=== PATIENT | female | born 1925 | race Caucasian/White ===

== ENCOUNTER 2016-03-26 02:55 | Inpatient (IN) | payer OTHER, MEDICARE ==
[~2016-03-26] VITALS: Ht 160 cm; Wt 72.6 kg
[~2016-03-26 02:55] MED LIST: ALLOPURINOL100 MG PO; AMBIEN5 MG PO; AMITRIPTYLINE H25 MG PO; AMLODIPINE BESY10 MG; AMLODIPINE BESYL5 MG PO; ASPIR 8181 M1; ASPIRIN81 M1 PO; AVAPRO75 MG PO; CALTRATE 600600 MG PO; CEFUROXIME500 MG PO; CHLORDIAZEPOXID10 MG PO; CLONIDINE HCL0.1 MG; COLCRYS0.6 MG PO; COZAAR50 MG PO; Calcium Carbonate,Ca PO; DUONEB 2.5-0.5 M3 ML AEROSOL; DURAGESIC75 MCG TD; DuoNeb IH; ELAVIL25 MG PO; FISH OIL 1,0001 EAC7 PO; FISH OIL CONC1 EACH PO; FUROSEMIDE20 MG PO; FUROSEMIDE40 MG PO; GLIPIZIDE ER2.5 MG PO; GLIPIZIDE XL10 MG; GLIPIZIDE XL10 MG PO; HYDROCHLOROTHIA25 MG PO; Hydrodiuril,Oretic,E PO; ISOSORBIDE MONO30 MG PO; KENALOG,ARISTOC80 GM; KLOR-CON 88 MEQ PO; LASIX20 MG PO; LEVOTHYROXINE100 MCG PO; LEVOTHYROXINE88 MCG; LIBRIUM10 MG PO; LISINOPRIL40 MG; LISINOPRIL40 MG PO; LO-DOSE ASPIRIN81 M1 PO; LOPRESSOR25 MG; LOPRESSOR25 MG PO; LOPRESSOR50 MG PO; LOSARTAN POTASS50 MG PO; METOPROLOL SUC100 MG PO; METOPROLOL TART50 MG PO; MULTIVITAMIN PO; MULTIVITAMIN1 EAC2; NIFEDIPINE ER30 MG PO; NIFEDIPINE ER60 MG PO; NITROSTAT0.4 MG; NITROSTAT0.4 MG SL; NORVASC10 MG PO; Norvasc PO; OMEGA 3 1,0001 EACH; OSTEO BI-FLEX1 EAC2; PEPCID AC20 MG PO; PRAVACHOL40 MG PO; PRAVASTATIN SOD40 MG PO; PRO AIR IH; PROAIR HFA8.5 GM IH; PROTONIX40 MG PO; PROVENTIL,2.5 MG/3 M IH; Percocet 5/325,Endoc PO; Protonix PO; REFRESH EYE DR1 EACH BOTH EYES; SIMVASTATIN20 MG; SYNTHROID88 MCG PO; TOPROL XL100 MG PO; TRAMADOL HCL50 MG; TYLENOL ARTHRI650 M2; TYLENOL EXTRA500 MG PO; Tirosint PO; Toprol XL PO; Tylenol Arthritis Ex PO; Vitamin D PO; ZOLPIDEM TARTRAT5 MG; Zestril,Prinivil PO; Zocor PO
[2016-03-26 05:23] LABS: INTER. NORMALIZED RATIO 1.1; PROTHROMBIN TIME 11.1 (9.2-11.2); PTT 27.2 (25-32)
[2016-03-26 05:24] LABS: CHLORIDE 106 mEq/L (99-109); POTASSIUM 4.6 mEq/L (3.7-5.4); SODIUM 138 mEq/L (136-147)
[2016-03-26 05:26] LABS: GLUCOSE 113 mg/dL (70-99)
[2016-03-26 05:27] LABS: ANION GAP 11 MEQ/L (2-14)
[2016-03-26 05:30] LABS: GFR ESTIMATE (CALCULATED) 27 mL/min/
[2016-03-26 05:31] LABS: UREA NITROGEN (BUN) 45 mg/dL (9-23)
[2016-03-26 05:33] LABS: HEMATOCRIT 26.9 % (36.0-46.0); MCH 29.3 PG (29.0-34.0); MCHC 32.3 G/DL (30.0-36.0); MCV 90.6 FL (83-99); MEAN PLAT.VOLUME 11.3 uM^3 (9.5-12.4); PLATELET COUNT 227 K/uL (156-360); RBC DIS.WIDTH-CV 14.7 % (11.8-14.6); RED BLOOD COUNT 2.97 M/uL (3.80-5.20); WHITE BLOOD COUNT 12.7 K/uL (4.1-10.2)
[2016-03-26 05:36] LABS: ADD MIUA? YES; BILIRUBIN NEGATIVE; BLOOD LARGE; COLOR YELLOW ((YELLOW)); GLUCOSE (STRIP) NEGATIVE; KETONES NEGATIVE; LEUKOCYTES MODERATE; NITRITE POSITIVE; PROTEIN (STRIP) 100; SPECIFIC GRAVITY 1.006 (1.000-1.030); UROBILINOGEN 0.2 MG/DL (0.2-1.0)
[2016-03-26 06:06] LABS: EPITHELIAL CELLS 1+; RED BLOOD CELLS TNTC /HPF (0-5); WHITE BLOOD CELLS TNTC /HPF (0-5)
[2016-03-26 06:07] LABS: AMORPHOUS URATES CRYSTALS 1+; BACTERIA 3+; CASTS NONE SEEN /LPF; CRYSTALS PRESENT; MUCUS 1+; UCUL ADDED? YES
[2016-03-26 11:28] LABS: POINT-OF-CARE METER ID UU14100415
[2016-03-26] MEDS ORDERED: DUONEB 2.5-0.5 M3 ML AEROSOL (12:38)
[2016-03-26] MEDS ORDERED: ELIQUIS2.5 MG PO (12:38)
[2016-03-26] MEDS ORDERED: TOPROL XL50 MG PO (12:39)
[2016-03-26] MEDS ORDERED: KLOR-CON 88 MEQ PO (12:45)
[2016-03-26] MEDS ORDERED: LASIX40 MG PO (12:46)
[2016-03-26] MEDS ORDERED: COZAAR50 MG PO (12:47)
[2016-03-26] MEDS ORDERED: TYLENOL EXTRA500 MG PO (12:49)
[2016-03-26 16:48] LABS: POINT-OF-CARE METER ID UU14100415; POINT-OF-CARE USER ID STWBNM43
[2016-03-26 18:48] VITALS: BP 161/67
[2016-03-26 20:06] VITALS: BP 145/64
[2016-03-27 00:06] VITALS: BP 138/77
[2016-03-27 03:53] VITALS: BP 160/70
[2016-03-27 05:24] LABS: HEMATOCRIT 25.9 % (36.0-46.0); MCH 29.5 PG (29.0-34.0); MCHC 32.8 G/DL (30.0-36.0); MCV 89.9 FL (83-99); MEAN PLAT.VOLUME 10.9 uM^3 (9.5-12.4); PLATELET COUNT 209 K/uL (156-360); RBC DIS.WIDTH-CV 15.2 % (11.8-14.6); RBC DIS.WIDTH-SD 49.9 % (39-53); RED BLOOD COUNT 2.88 M/uL (3.80-5.20); WHITE BLOOD COUNT 9.2 K/uL (4.1-10.2)
[2016-03-27 05:55] LABS: ANION GAP 10 MEQ/L (2-14); CHLORIDE 102 MEQ/L (99-109); GFR ESTIMATE (CALCULATED) 27 mL/min/; GLUCOSE 103 mg/dL (70-99); POTASSIUM 4.2 MEQ/L (3.7-5.4); SAMPLE HEMOLYSIS CHECK 0; SAMPLE ICTERIC CHECK 0; SAMPLE LIPEMIA CHECK 0; SODIUM 138 MEQ/L (136-147); UREA NITROGEN (BUN) 38 mg/dL (9-23)
[2016-03-27 07:56] VITALS: BP 170/74
[2016-03-27 13:14] LABS: POINT-OF-CARE METER ID UU13113675
[2016-03-27 15:30] VITALS: BP 156/67; BP 164/73
[2016-03-27 16:30] VITALS: BP 164/73
[2016-03-27 16:54] LABS: POINT-OF-CARE METER ID UU13113717
[2016-03-27 20:17] VITALS: BP 161/71
[2016-03-28] VITALS: BP 166/74
[2016-03-28 03:54] VITALS: BP 160/72
[2016-03-28 05:39] LABS: HEMATOCRIT 29.4 % (36.0-46.0); MCV 89.9 FL (83-99)
[2016-03-28 06:01] LABS: ANION GAP 12 MEQ/L (2-14); CHLORIDE 99 MEQ/L (99-109); GFR ESTIMATE (CALCULATED) 27 mL/min/; GLUCOSE 117 mg/dL (70-99); POTASSIUM 4.2 MEQ/L (3.7-5.4); SAMPLE HEMOLYSIS CHECK 0; SAMPLE ICTERIC CHECK 0; SAMPLE LIPEMIA CHECK 0; SODIUM 136 MEQ/L (136-147); UREA NITROGEN (BUN) 37 mg/dL (9-23)
[2016-03-28 07:38] VITALS: BP 170/84
[2016-03-28 11:56] VITALS: BP 169/73
[2016-03-28 12:10] LABS: POINT-OF-CARE METER ID UU13113717
[2016-03-28 16:13] VITALS: BP 137/66
[2016-03-28 16:36] LABS: POINT-OF-CARE METER ID UU14149397
[2016-03-28 23:48] VITALS: BP 116/71
[2016-03-29 03:19] VITALS: BP 145/65
[2016-03-29 05:38] LABS: HEMATOCRIT 29.9 % (36.0-46.0); MCV 90.1 FL (83-99)
[2016-03-29 08:30] VITALS: BP 131/64
[2016-03-29 11:30] VITALS: BP 163/72
[2016-03-29 13:05] LABS: POINT-OF-CARE METER ID UU14149397
[2016-03-29 16:07] LABS: POINT-OF-CARE METER ID UU14149397
[2016-03-29 16:30] VITALS: BP 134/65
[2016-03-29 19:44] VITALS: BP 122/80
[2016-03-29 23:50] VITALS: BP 129/71
[2016-03-30 03:43] VITALS: BP 128/70
[2016-03-30 08:09] VITALS: BP 128/60
[2016-03-30 11:35] LABS: POINT-OF-CARE METER ID UU14149397
[2016-03-30 11:58] VITALS: BP 159/70
[2016-03-30 16:00] VITALS: BP 104/57
[2016-03-30 19:53] VITALS: BP 131/81
[2016-03-31 00:05] VITALS: BP 101/53
[2016-03-31 04:17] VITALS: BP 128/63
[2016-03-31 11:28] VITALS: BP 124/69
[2016-03-31 16:05] VITALS: BP 151/66
[2016-03-31 23:44] VITALS: BP 114/58
[2016-04-01 07:45] VITALS: BP 112/69
[2016-04-01 11:39] LABS: POINT-OF-CARE METER ID UU13113717
== END 2016-04-01 14:20 | DRG 481 ==
LOC: EME 02:55 → TRA 02:55 → EDOF 09:42 → 3EAST 09:42
PROVIDERS: Internal Medicine; Orthopaedic Surgery Hand Surgery; Physician Assistant Medical
PROC: 0QS634Z Reposition Right Upper Femur with Internal Fixation Device, Percutaneous Approach (ICD-10-PCS; principal; 2016-03-27)
PROC: 30233N1 Transfusion of Nonautologous Red Blood Cells into Peripheral Vein, Percutaneous Approach (ICD-10-PCS; 2016-03-27)
DX: S72.001A Fracture of unspecified part of neck of right femur, initial encounter for closed fracture (principal); S42.414A Nondisplaced simple supracondylar fracture without intercondylar fracture of right humerus, initial encounter for closed fracture; W01.0XXA Fall on same level from slipping, tripping and stumbling without subsequent striking against object, initial encounter; Y92.009 Unspecified place in unspecified non-institutional (private) residence as the place of occurrence of the external cause; N39.0 Urinary tract infection, site not specified; I13.0 Hypertensive heart and chronic kidney disease with heart failure and stage 1 through stage 4 chronic kidney disease, or unspecified chronic kidney disease; I50.32 Chronic diastolic (congestive) heart failure; E11.22 Type 2 diabetes mellitus with diabetic chronic kidney disease; N18.3 Chronic kidney disease, stage 3 (moderate); B96.89 Other specified bacterial agents as the cause of diseases classified elsewhere; E03.9 Hypothyroidism, unspecified; E78.5 Hyperlipidemia, unspecified; I48.0 Paroxysmal atrial fibrillation; M10.9 Gout, unspecified; D64.9 Anemia, unspecified; I25.10 Atherosclerotic heart disease of native coronary artery without angina pectoris; E78.00 Pure hypercholesterolemia, unspecified; J45.909 Unspecified asthma, uncomplicated; I35.0 Nonrheumatic aortic (valve) stenosis; K59.00 Constipation, unspecified; Z79.01 Long term (current) use of anticoagulants; Z79.82 Long term (current) use of aspirin; Z99.81 Dependence on supplemental oxygen
CPT/HCPCS: 71010; 73080; 73200; 73502; 76000; 80048; 81003; 82948; 85014; 85018; 85027; 85610; 85730; 86850; 86900; 86901; 86920; 87077; 87086; 87186; 93005; 94010; 94640; 94640 76; 94760; 94799; 97530 GO; 97530 GP; 99202; 99281; 99285; C1713; J0360; J0696; J1170; J1815; J1940; J2060; J2250; J3010; J3360; J7030; J7050; J7120; P9016; S0028

== ENCOUNTER → 2016-04-13 | Outpatient (CLI) | payer OTHER, MEDICARE ==
[2016-04-13] VITALS (8 sets, daily range): BP systolic 166–194; BP diastolic 72–81
[~2016-04-13] MED LIST changes: +B-12500 MC1 SL; +ELIQUIS2.5 MG PO; +LASIX40 MG PO; +TOPROL XL50 MG PO
[2016-04-13 14:29] LABS: HEMATOCRIT 27.9 % (36.0-46.0)
[2016-04-13 14:30] LABS: MCV 91.5 FL (83-99)
== END | disposition home or self-care (01) ==
LOC: IVINF 07:00
PROVIDERS: Family Medicine
DX: D62 Acute posthemorrhagic anemia (principal)
CPT/HCPCS: 36430; 85014; 85018; 86850; 86900; 86901; 86920; 86999; P9016

== ENCOUNTER → 2016-05-06 | Outpatient (CLI) | payer OTHER, MEDICARE ==
[~2016-05-06] VITALS: Ht 152.4 cm; Wt 74.0 kg
[2016-05-06] VITALS (11 sets, daily range): BP systolic 140–188; BP diastolic 64–81
[~2016-05-06] MED LIST changes: +COLCHICINE0.6 M1 PO; +VITAMIN D5000 UNI1 PO
[2016-05-06 19:04] LABS: HEMATOCRIT 30.5 % (36.0-46.0)
[2016-05-06 19:07] LABS: MCV 92.4 FL (83-99)
== END ==
LOC: IVINF 10:30
PROVIDERS: Family Medicine
DX: D64.9 Anemia, unspecified (principal)
CPT/HCPCS: 36415; 36430; 85014; 85018; 86850; 86900; 86901; 86920; 86999; 96375; J1940; P9016

== ENCOUNTER → 2016-05-07 | Outpatient (CLI) | payer OTHER, MEDICARE | LOC: RAD 14:00 | DX: K80.20 Calculus of gallbladder without cholecystitis without obstruction (principal); K57.90 Diverticulosis of intestine, part unspecified, without perforation or abscess without bleeding; D64.9 Anemia, unspecified | CPT/HCPCS: 74176 ==

== ENCOUNTER 2016-08-16 20:30 | Inpatient (IN) | payer OTHER, MEDICARE ==
[~2016-08-16] VITALS: Ht 160 cm; Wt 60.4 kg
[2016-08-16 21:32] LABS: HEMATOCRIT 35.6 % (36.0-46.0); MCH 29.8 PG (29.0-34.0); MCHC 32.6 G/DL (30.0-36.0); MCV 91.5 FL (83-99); MEAN PLAT.VOLUME 11.2 uM^3 (9.5-12.4); PLATELET COUNT 202 K/uL (156-360); RBC DIS.WIDTH-CV 14.6 % (11.8-14.6); RED BLOOD COUNT 3.89 M/uL (3.80-5.20); WHITE BLOOD COUNT 7.8 K/uL (4.1-10.2)
[2016-08-16 21:42] LABS: CHLORIDE 109 mEq/L (99-109); POTASSIUM 4.6 mEq/L (3.7-5.4); SODIUM 142 mEq/L (136-147)
[2016-08-16 21:43] LABS: GLUCOSE 101 mg/dL (70-99)
[2016-08-16 21:45] LABS: ANION GAP 11 MEQ/L (2-14)
[2016-08-16 21:47] LABS: GFR ESTIMATE (CALCULATED) 18 mL/min/
[2016-08-16 21:48] LABS: UREA NITROGEN (BUN) 69 mg/dL (9-23)
[2016-08-16 21:54] LABS: TROP-I INTERPRETATION NEGATIVE; TROPONIN-I 0.03 ng/mL (0.0-0.30)
[2016-08-16 23:39] LABS: ADD MIUA? YES; BILIRUBIN NEGATIVE; BLOOD NEGATIVE; COLOR YELLOW ((YELLOW)); GLUCOSE (STRIP) NEGATIVE; KETONES NEGATIVE; LEUKOCYTES MODERATE; NITRITE NEGATIVE; PROTEIN (STRIP) 100; SPECIFIC GRAVITY 1.013 (1.000-1.030); UROBILINOGEN 0.2 MG/DL (0.2-1.0)
[2016-08-17 00:25] LABS: UCUL ADDED? YES; WHITE BLOOD CELLS TNTC /HPF (0-5)
[2016-08-17] MEDS ORDERED: PROTONIX40 MG PO (00:46)
[2016-08-17] MEDS ORDERED: CELEBREX200 MG PO (00:47)
[2016-08-17 14:06] VITALS: BP 116/57
[2016-08-17 19:18] VITALS: BP 150/68
[2016-08-17 23:25] VITALS: BP 144/63
[2016-08-18 03:45] VITALS: BP 138/60
[2016-08-18 06:48] VITALS: BP 174/74
[2016-08-18 07:17] LABS: HEMATOCRIT 33.5 % (36.0-46.0); MCH 29.6 PG (29.0-34.0); MCHC 31.9 G/DL (30.0-36.0); MCV 92.5 FL (83-99); MEAN PLAT.VOLUME 11.4 uM^3 (9.5-12.4); PLATELET COUNT 176 K/uL (156-360); RBC DIS.WIDTH-CV 14.6 % (11.8-14.6); RBC DIS.WIDTH-SD 50.1 % (39-53); RED BLOOD COUNT 3.62 M/uL (3.80-5.20); WHITE BLOOD COUNT 7.3 K/uL (4.1-10.2)
[2016-08-18 07:39] LABS: ANION GAP 9 MEQ/L (2-14); CHLORIDE 110 MEQ/L (99-109); GFR ESTIMATE (CALCULATED) 24 mL/min/; GLUCOSE 98 mg/dL (70-99); POTASSIUM 4.3 MEQ/L (3.7-5.4); SAMPLE HEMOLYSIS CHECK 0; SAMPLE ICTERIC CHECK 0; SAMPLE LIPEMIA CHECK 0; SODIUM 141 MEQ/L (136-147); UREA NITROGEN (BUN) 59 mg/dL (9-23); URIC ACID 8.6 mg/dL (3.1-9.2)
[2016-08-18 12:00] VITALS: BP 133/60
[2016-08-18 15:30] VITALS: BP 192/86
[2016-08-18 19:33] VITALS: BP 127/60
[2016-08-18 23:58] VITALS: BP 133/64
[2016-08-19 03:49] VITALS: BP 140/72
[2016-08-19 07:17] VITALS: BP 188/79
[2016-08-19 07:42] LABS: HEMATOCRIT 35.9 % (36.0-46.0); MCH 29.8 PG (29.0-34.0); MEAN PLAT.VOLUME 11.6 uM^3 (9.5-12.4); PLATELET COUNT 186 K/uL (156-360); RBC DIS.WIDTH-CV 14.6 % (11.8-14.6); RED BLOOD COUNT 3.86 M/uL (3.80-5.20); WHITE BLOOD COUNT 8.4 K/uL (4.1-10.2)
[2016-08-19 08:05] LABS: ALKALINE PHOSPHATASE 65 IU/L (3-129); ANION GAP 8 MEQ/L (2-14); CHLORIDE 108 MEQ/L (99-109); GFR ESTIMATE (CALCULATED) 26 mL/min/; GLUCOSE 99 mg/dL (70-99); POTASSIUM 4.5 MEQ/L (3.7-5.4); SAMPLE HEMOLYSIS CHECK 0; SAMPLE ICTERIC CHECK 0; SAMPLE LIPEMIA CHECK 0; SODIUM 140 MEQ/L (136-147); TOTAL BILIRUBIN 0.3 MG/DL (0.0-1.0); UREA NITROGEN (BUN) 44 mg/dL (9-23)
[2016-08-19 11:20] VITALS: BP 147/65
[2016-08-19 15:17] VITALS: BP 168/72
[2016-08-19 20:59] VITALS: BP 165/72
[2016-08-20 00:22] VITALS: BP 172/74
[2016-08-20 03:28] VITALS: BP 151/67
[2016-08-20 07:45] VITALS: BP 184/74
[2016-08-20 12:29] VITALS: BP 186/80
[2016-08-20] MEDS ORDERED: APRESOLINE25 MG PO (12:35)
[2016-08-20] MEDS ORDERED: NIFEDIPINE ER30 MG PO (12:36)
[2016-08-20] MEDS ORDERED: CEFDINIR300 MG PO (12:40)
[2016-08-20 15:37] VITALS: BP 175/74
[2016-08-20 15:45] VITALS: BP 150/68
== END 2016-08-20 16:20 | DRG 683 ==
LOC: EME → EDBD 20:30 → EME 20:30 → 2EASTP 08-17 00:08 → EDOF 08-17 00:08 → 2EASTP 08-17 13:47
PROVIDERS: Emergency Medicine; Hospitalist; Internal Medicine
DX: N17.9 Acute kidney failure, unspecified (principal); N39.0 Urinary tract infection, site not specified; E03.9 Hypothyroidism, unspecified; E78.5 Hyperlipidemia, unspecified; F41.9 Anxiety disorder, unspecified; I35.0 Nonrheumatic aortic (valve) stenosis; I44.0 Atrioventricular block, first degree; I48.0 Paroxysmal atrial fibrillation; I50.9 Heart failure, unspecified; J45.909 Unspecified asthma, uncomplicated; K21.9 Gastro-esophageal reflux disease without esophagitis; M19.90 Unspecified osteoarthritis, unspecified site; N18.3 Chronic kidney disease, stage 3 (moderate); R29.6 Repeated falls; R32 Unspecified urinary incontinence; Z96.641 Presence of right artificial hip joint; E11.22 Type 2 diabetes mellitus with diabetic chronic kidney disease; I13.0 Hypertensive heart and chronic kidney disease with heart failure and stage 1 through stage 4 chronic kidney disease, or unspecified chronic kidney disease; M54.30 Sciatica, unspecified side; T39.395A Adverse effect of other nonsteroidal anti-inflammatory drugs [NSAID], initial encounter; M48.54XA Collapsed vertebra, not elsewhere classified, thoracic region, initial encounter for fracture; M51.36 Other intervertebral disc degeneration, lumbar region; Z91.81 History of falling
CPT/HCPCS: 71010; 72100; 73502; 76770; 80048; 80053; 81003; 84484; 84550; 85027; 87077; 87086; 87186; 89190; 93005; 94799; 99281; 99285; J0360; J0696; J1644; J7030; J7050

== ENCOUNTER 2016-10-16 16:30 | Inpatient (IN) | payer OTHER, MEDICARE ==
[~2016-10-16] VITALS: Ht 152.4 cm; Wt 80.4 kg
[~2016-10-16 16:30] MED LIST changes: +APRESOLINE25 MG PO; +B-121000 MC2 PO; -B-12500 MC1 SL; +CEFDINIR300 MG PO; +CELEBREX200 MG PO
[2016-10-16 17:09] LABS: HEMATOCRIT 28.2 % (36.0-46.0); MCH 29.9 PG (29.0-34.0); MCHC 32.6 G/DL (30.0-36.0); MCV 91.6 FL (83-99); MEAN PLAT.VOLUME 10.4 uM^3 (9.5-12.4); PLATELET COUNT 226 K/uL (156-360); RBC DIS.WIDTH-SD 50.4 % (39-53); RED BLOOD COUNT 3.08 M/uL (3.80-5.20); WHITE BLOOD COUNT 9.2 K/uL (4.1-10.2)
[2016-10-16 17:18] LABS: CHLORIDE 101 mEq/L (99-109); POTASSIUM 3.8 mEq/L (3.7-5.4); SODIUM 139 mEq/L (136-147)
[2016-10-16 17:20] LABS: GLUCOSE 163 mg/dL (70-99)
[2016-10-16 17:21] LABS: ANION GAP 13 MEQ/L (2-14)
[2016-10-16 17:24] LABS: GFR ESTIMATE (CALCULATED) 22 mL/min/; UREA NITROGEN (BUN) 46 mg/dL (9-23)
[2016-10-16] MEDS ORDERED: FLEXERIL5 MG PO (22:46)
[2016-10-16] MEDS ORDERED: NIFEDIPINE ER90 MG PO (22:47)
[2016-10-16] MEDS ORDERED: OMEPRAZOLE20 MG PO (22:47)
[2016-10-16] MEDS ORDERED: TRAMADOL HCL50 MG PO (22:47)
[2016-10-16] MEDS ORDERED: FUROSEMIDE20 MG PO (22:47)
[2016-10-16] MEDS ORDERED: APRESOLINE50 MG PO (22:48)
[2016-10-16] MEDS ORDERED: IMDUR60 MG PO (22:49)
[2016-10-16] MEDS ORDERED: ALLOPURINOL100 MG PO (22:49)
[2016-10-17] VITALS (7 sets, daily range): BP systolic 130–184; BP diastolic 61–77
[2016-10-17 08:05] LABS: HEMATOCRIT 25.6 % (36.0-46.0); MCH 29.9 PG (29.0-34.0); MCV 93.4 FL (83-99); MEAN PLAT.VOLUME 10.5 uM^3 (9.5-12.4); PLATELET COUNT 198 K/uL (156-360); RBC DIS.WIDTH-CV 15.1 % (11.8-14.6); RBC DIS.WIDTH-SD 51.6 % (39-53); RED BLOOD COUNT 2.74 M/uL (3.80-5.20); WHITE BLOOD COUNT 8.7 K/uL (4.1-10.2)
[2016-10-17 08:29] LABS: ANION GAP 7 MEQ/L (2-14); CHLORIDE 103 MEQ/L (99-109); GFR ESTIMATE (CALCULATED) 28 mL/min/; POTASSIUM 3.8 MEQ/L (3.7-5.4); SAMPLE HEMOLYSIS CHECK 0; SAMPLE ICTERIC CHECK 0; SAMPLE LIPEMIA CHECK 0; SODIUM 141 MEQ/L (136-147); UREA NITROGEN (BUN) 36 mg/dL (9-23)
[2016-10-17 08:34] LABS: ALKALINE PHOSPHATASE 197 IU/L (3-129); GLUCOSE 86 mg/dL (70-99); TOTAL BILIRUBIN 0.6 MG/DL (0.0-1.0)
[2016-10-18 07:48] VITALS: BP 158/69
[2016-10-18 08:16] LABS: ANION GAP 9 MEQ/L (2-14); CHLORIDE 103 MEQ/L (99-109); GFR ESTIMATE (CALCULATED) 30 mL/min/; GLUCOSE 90 mg/dL (70-99); POTASSIUM 3.9 MEQ/L (3.7-5.4); SAMPLE HEMOLYSIS CHECK 0; SAMPLE ICTERIC CHECK 0; SAMPLE LIPEMIA CHECK 0; SODIUM 139 MEQ/L (136-147); UREA NITROGEN (BUN) 30 mg/dL (9-23)
[2016-10-18 15:48] VITALS: BP 154/69
[2016-10-18 23:00] VITALS: BP 143/73
[2016-10-18 23:45] VITALS: BP 143/73
[2016-10-19 03:40] VITALS: BP 133/60
[2016-10-19 06:39] LABS: TROP-I INTERPRETATION NEGATIVE; TROPONIN-I 0.04 ng/mL (0.0-0.30)
[2016-10-19 08:09] VITALS: BP 159/94
[2016-10-19 08:55] LABS: EOSINOPHIL (%) 0.6 % (0-5); EOSINOPHIL COUNT 0.1 K/uL (0-0.3); HEMATOCRIT 27.7 % (36.0-46.0); IMMATURE GRANULOCYTE (%) 0.9 % (0.0-0.7); IMMATURE GRANULOCYTE COUNT 0.1 K/uL; LYMPHOCYTE COUNT 0.5 K/uL (1.0-2.8); MCH 30.6 PG (29.0-34.0); MCHC 33.2 G/DL (30.0-36.0); MEAN PLAT.VOLUME 11.3 uM^3 (9.5-12.4); MONOCYTE (%) 6.9 % (3-12); MONOCYTE COUNT 0.8 K/uL (0-0.8); NEUTROPHIL (%) 87.4 % (45-76); PLATELET COUNT 192 K/uL (156-360); RBC DIS.WIDTH-CV 16.5 % (11.8-14.6); RBC DIS.WIDTH-SD 55.6 % (39-53); RED BLOOD COUNT 3.01 M/uL (3.80-5.20); WHITE BLOOD COUNT 11.5 K/uL (4.1-10.2)
[2016-10-19 09:19] LABS: ALKALINE PHOSPHATASE 189 IU/L (3-129); ANION GAP 12 MEQ/L (2-14); CHLORIDE 105 MEQ/L (99-109); GFR ESTIMATE (CALCULATED) 25 mL/min/; GLUCOSE 131 mg/dL (70-99); POTASSIUM 4.1 MEQ/L (3.7-5.4); SAMPLE HEMOLYSIS CHECK 0; SAMPLE ICTERIC CHECK 0; SAMPLE LIPEMIA CHECK 0; SODIUM 138 MEQ/L (136-147); UREA NITROGEN (BUN) 31 mg/dL (9-23)
[2016-10-19 09:20] LABS: TOTAL BILIRUBIN 1.3 MG/DL (0.0-1.0)
[2016-10-19 11:50] VITALS: BP 153/70
[2016-10-19 16:30] VITALS: BP 119/59
[2016-10-19 19:42] VITALS: BP 129/60
[2016-10-19 23:20] VITALS: BP 135/70
[2016-10-19 23:43] LABS: POINT-OF-CARE METER ID UU14188577
[2016-10-20 06:36] LABS: POINT-OF-CARE METER ID UU14188577
[2016-10-20 06:55] LABS: HEMATOCRIT 24.7 % (36.0-46.0); MCH 30.3 PG (29.0-34.0); MCHC 33.2 G/DL (30.0-36.0); MCV 91.1 FL (83-99); MEAN PLAT.VOLUME 10.9 uM^3 (9.5-12.4); PLATELET COUNT 168 K/uL (156-360); RBC DIS.WIDTH-CV 16.4 % (11.8-14.6); RBC DIS.WIDTH-SD 54.4 % (39-53); RED BLOOD COUNT 2.71 M/uL (3.80-5.20); WHITE BLOOD COUNT 8.6 K/uL (4.1-10.2)
[2016-10-20 07:23] LABS: ALKALINE PHOSPHATASE 179 IU/L (3-129); ANION GAP 9 MEQ/L (2-14); CHLORIDE 105 MEQ/L (99-109); GFR ESTIMATE (CALCULATED) 26 mL/min/; GLUCOSE 113 mg/dL (70-99); POTASSIUM 3.7 MEQ/L (3.7-5.4); SAMPLE HEMOLYSIS CHECK 0; SAMPLE ICTERIC CHECK 0; SAMPLE LIPEMIA CHECK 0; SODIUM 138 MEQ/L (136-147); TOTAL BILIRUBIN 1.3 MG/DL (0.0-1.0); UREA NITROGEN (BUN) 27 mg/dL (9-23)
[2016-10-20 07:46] VITALS: BP 129/62
[2016-10-20 15:17] VITALS: BP 130/61
[2016-10-20 16:10] LABS: POINT-OF-CARE METER ID UU14188577
[2016-10-20 21:02] LABS: POINT-OF-CARE METER ID UU14188577
[2016-10-21 00:09] VITALS: BP 132/68
[2016-10-21 06:40] LABS: POINT-OF-CARE METER ID UU14117124
[2016-10-21 08:11] VITALS: BP 147/67
[2016-10-21 11:25] LABS: POINT-OF-CARE METER ID UU14208753
== END 2016-10-21 14:52 | DRG 470 ==
LOC: EME 16:30 → EDOF 23:04 → 3EAST 23:04 → ENRESERV 23:05 → 3EAST 10-17 01:00
PROVIDERS: Internal Medicine; Internal Medicine Cardiovascular Disease; Physician Assistant Medical
PROC: 0SR902A Replacement of Right Hip Joint with Metal on Polyethylene Synthetic Substitute, Uncemented, Open Approach (ICD-10-PCS; principal; 2016-10-16)
PROC: 30233N1 Transfusion of Nonautologous Red Blood Cells into Peripheral Vein, Percutaneous Approach (ICD-10-PCS; 2016-10-19)
DX: T84.114A Breakdown (mechanical) of internal fixation device of right femur, initial encounter (principal); S72.91XK Unspecified fracture of right femur, subsequent encounter for closed fracture with nonunion; K21.9 Gastro-esophageal reflux disease without esophagitis; I48.0 Paroxysmal atrial fibrillation; I50.32 Chronic diastolic (congestive) heart failure; I27.2 Other secondary pulmonary hypertension; I08.1 Rheumatic disorders of both mitral and tricuspid valves; N18.4 Chronic kidney disease, stage 4 (severe); E11.40 Type 2 diabetes mellitus with diabetic neuropathy, unspecified; E11.22 Type 2 diabetes mellitus with diabetic chronic kidney disease; I13.0 Hypertensive heart and chronic kidney disease with heart failure and stage 1 through stage 4 chronic kidney disease, or unspecified chronic kidney disease; R26.89 Other abnormalities of gait and mobility; D64.9 Anemia, unspecified; E03.9 Hypothyroidism, unspecified; R09.89 Other specified symptoms and signs involving the circulatory and respiratory systems; I25.10 Atherosclerotic heart disease of native coronary artery without angina pectoris; M54.9 Dorsalgia, unspecified; G89.29 Other chronic pain; H91.90 Unspecified hearing loss, unspecified ear; E78.5 Hyperlipidemia, unspecified; K59.00 Constipation, unspecified; R60.0 Localized edema; R32 Unspecified urinary incontinence; B96.20 Unspecified Escherichia coli [E. coli] as the cause of diseases classified elsewhere; I08.3 Combined rheumatic disorders of mitral, aortic and tricuspid valves; Z66 Do not resuscitate; S52.271A Monteggia's fracture of right ulna, initial encounter for closed fracture; Z96.641 Presence of right artificial hip joint; M19.90 Unspecified osteoarthritis, unspecified site; M10.9 Gout, unspecified; J84.10 Pulmonary fibrosis, unspecified; Z88.6 Allergy status to analgesic agent; Z88.1 Allergy status to other antibiotic agents; Z79.899 Other long term (current) drug therapy; Z88.8 Allergy status to other drugs, medicaments and biological substances; Z86.718 Personal history of other venous thrombosis and embolism; Z99.81 Dependence on supplemental oxygen; Z91.041 Radiographic dye allergy status; I35.0 Nonrheumatic aortic (valve) stenosis; R07.9 Chest pain, unspecified; M79.606 Pain in leg, unspecified; Z90.6 Acquired absence of other parts of urinary tract; M81.0 Age-related osteoporosis without current pathological fracture
CPT/HCPCS: 36415; 72100; 73502; 73700; 80048; 80053; 81003; 82948; 83036; 84443; 84484; 85025; 85027; 86900; 86901; 86920; 87070; 87075; 87077; 87086; 87186; 87205; 93005; 94799; 99281; 99285; J0131; J0330; J0690; J1170; J1335; J1644; J2270; J2405; J3010; J3480; J7030; J7050; P9016

== ENCOUNTER 2016-11-16 18:39 | Inpatient (IN) | payer OTHER, MEDICARE ==
[~2016-11-16] VITALS: Ht 160 cm; Wt 75.2 kg
[~2016-11-16 18:39] MED LIST changes: +APRESOLINE50 MG PO; +FLEXERIL5 MG PO; +IMDUR60 MG PO; +NIFEDIPINE ER90 MG PO; +OMEPRAZOLE20 MG PO; +TRAMADOL HCL50 MG PO
[2016-11-16 20:03] LABS: EOSINOPHIL (%) 1.8 % (0-5); EOSINOPHIL COUNT 0.3 K/uL (0-0.3); HEMATOCRIT 28.8 % (36.0-46.0); IMMATURE GRANULOCYTE (%) 1.1 % (0.0-0.7); IMMATURE GRANULOCYTE COUNT 0.2 K/uL; INSTRUMENT ABS NEUTROPHIL CT 14.6 K/uL; LYMPHOCYTE COUNT 0.2 K/uL (1.0-2.8); MCH 30.4 PG (29.0-34.0); MCHC 31.9 G/DL (30.0-36.0); MONOCYTE (%) 3.5 % (3-12); MONOCYTE COUNT 0.6 K/uL (0-0.8); NEUTROPHIL (%) 92.5 % (45-76); NEUTROPHIL COUNT 14.6 K/uL (1.8-6.4); PLATELET COUNT 292 K/uL (156-360); RBC DIS.WIDTH-CV 17.1 % (11.8-14.6); RBC DIS.WIDTH-SD 59.8 % (39-53); RED BLOOD COUNT 3.03 M/uL (3.80-5.20); WHITE BLOOD COUNT 15.7 K/uL (4.1-10.2)
[2016-11-16 20:21] LABS: CHLORIDE 108 mEq/L (99-109); POTASSIUM 4.8 mEq/L (3.7-5.4); SODIUM 143 mEq/L (136-147)
[2016-11-16 20:23] LABS: GLUCOSE 81 mg/dL (70-99)
[2016-11-16 20:24] LABS: ANION GAP 14 MEQ/L (2-14)
[2016-11-16 20:26] LABS: GFR ESTIMATE (CALCULATED) 26 mL/min/
[2016-11-16 20:27] LABS: UREA NITROGEN (BUN) 25 mg/dL (9-23)
[2016-11-16 20:31] LABS: TROP-I INTERPRETATION NEGATIVE; TROPONIN-I 0.01 ng/mL (0.0-0.30)
[2016-11-16 20:38] LABS: ADD MIUA? YES; BILIRUBIN NEGATIVE; BLOOD NEGATIVE; COLOR YELLOW ((YELLOW)); GLUCOSE (STRIP) 50; KETONES NEGATIVE; LEUKOCYTES NEGATIVE; NITRITE NEGATIVE; PROTEIN (STRIP) >=500; SPECIFIC GRAVITY 1.014 (1.000-1.030); UROBILINOGEN 0.2 MG/DL (0.2-1.0)
[2016-11-16 20:43] LABS: BACTERIA RARE /HPF; EPITHELIAL CELLS RARE /HPF; MUCUS TRACE /LPF; RED BLOOD CELLS 0-5 /HPF (0-5); UCUL ADDED? YES
[2016-11-17] VITALS (8 sets, daily range): BP systolic 112–151; BP diastolic 55–78
[2016-11-17 04:02] LABS: EOSINOPHIL (%) 0.2 % (0-5); HEMATOCRIT 21.7 % (36.0-46.0); IMMATURE GRANULOCYTE (%) 0.8 % (0.0-0.7); IMMATURE GRANULOCYTE COUNT 0.2 K/uL; INSTRUMENT ABS NEUTROPHIL CT 18.4 K/uL; LYMPHOCYTE COUNT 0.1 K/uL (1.0-2.8); MCH 30.3 PG (29.0-34.0); MCHC 32.3 G/DL (30.0-36.0); MCV 93.9 FL (83-99); MEAN PLAT.VOLUME 10.6 uM^3 (9.5-12.4); MONOCYTE (%) 2.4 % (3-12); MONOCYTE COUNT 0.5 K/uL (0-0.8); NEUTROPHIL (%) 95.9 % (45-76); NEUTROPHIL COUNT 18.4 K/uL (1.8-6.4); PLATELET COUNT 250 K/uL (156-360); RBC DIS.WIDTH-SD 58.1 % (39-53); RED BLOOD COUNT 2.31 M/uL (3.80-5.20); WHITE BLOOD COUNT 19.2 K/uL (4.1-10.2)
[2016-11-17 04:03] LABS: CHLORIDE 108 mEq/L (99-109); POTASSIUM 4.5 mEq/L (3.7-5.4); SODIUM 139 mEq/L (136-147)
[2016-11-17 04:06] LABS: ANION GAP 11 MEQ/L (2-14)
[2016-11-17 04:08] LABS: GFR ESTIMATE (CALCULATED) 30 mL/min/
[2016-11-17 04:09] LABS: UREA NITROGEN (BUN) 25 mg/dL (9-23)
[2016-11-17 04:10] LABS: GLUCOSE 129 mg/dL (70-99)
[2016-11-17 04:55] LABS: INFLUENZA A VIRAL ANTIGEN NEGATIVE; INFLUENZA B VIRAL ANTIGEN NEGATIVE
[2016-11-17] MEDS ORDERED: METOPROLOL SUCC25 MG PO (08:31)
[2016-11-17] MEDS ORDERED: VITRON-C TABLE1 EACH PO (08:36)
[2016-11-17] MEDS ORDERED: ASPIR-LOW81 MG PO (08:37)
[2016-11-17] MEDS ORDERED: FERROUS SULFAT325 MG PO (08:38)
[2016-11-17] MEDS ORDERED: TYLENOL EXTRA500 MG PO (08:40)
[2016-11-17] MEDS ORDERED: NITROFURANTOIN50 MG PO (08:43)
[2016-11-17] MEDS ORDERED: DULCOLAX10 MG PR (08:44)
[2016-11-17] MEDS ORDERED: MIRALAX17 GM PO (08:45)
[2016-11-17] MEDS ORDERED: MILK OF MAGN PO (08:45)
[2016-11-17] MEDS ORDERED: ROXICODONE5 MG PO (08:46)
[2016-11-17 08:50] LABS: INTERNAL CONTROL VALID? YES
[2016-11-17 18:09] LABS: METH RESISTANT S AUREUS PCR NEGATIVE (NEGATIVE)
[2016-11-17 18:11] LABS: PROBE CHECK PASS; SPECIMEN PROCESSING CONTROL PASS
[2016-11-17 19:42] LABS: EOSINOPHIL (%) 1.6 % (0-5); EOSINOPHIL COUNT 0.2 K/uL (0-0.3); HEMATOCRIT 24.5 % (36.0-46.0); IMMATURE GRANULOCYTE (%) 0.6 % (0.0-0.7); IMMATURE GRANULOCYTE COUNT 0.1 K/uL; INSTRUMENT ABS NEUTROPHIL CT 10.7 K/uL; LYMPHOCYTE COUNT 0.4 K/uL (1.0-2.8); MCH 31.1 PG (29.0-34.0); MCHC 33.5 G/DL (30.0-36.0); MCV 92.8 FL (83-99); MEAN PLAT.VOLUME 10.6 uM^3 (9.5-12.4); MONOCYTE (%) 3.7 % (3-12); MONOCYTE COUNT 0.4 K/uL (0-0.8); NEUTROPHIL (%) 90.8 % (45-76); NEUTROPHIL COUNT 10.7 K/uL (1.8-6.4); PLATELET COUNT 196 K/uL (156-360); RBC DIS.WIDTH-CV 17.5 % (11.8-14.6); RBC DIS.WIDTH-SD 58.5 % (39-53); RED BLOOD COUNT 2.64 M/uL (3.80-5.20); WHITE BLOOD COUNT 11.8 K/uL (4.1-10.2)
[2016-11-17 23:24] LABS: BASE EXCESS -1.7 mEq/L (-3 to +3); CARBOXY HGB 1.5 % (0-5); METHEMOGLOBIN 1.4 % (0-1.5); PCO2 38 mm Hg (35-45); PO2 85 mm Hg (80-100); pH 7.39 (7.35-7.45)
[2016-11-17 23:25] LABS: COMMENTS - BLOOD GASES C+A+; DEVICE HFNC; O2 FLOW 15 L/MIN; SITE RR
[2016-11-18 07:05] LABS: EOSINOPHIL (%) 1.4 % (0-5); EOSINOPHIL COUNT 0.2 K/uL (0-0.3); HEMATOCRIT 25.4 % (36.0-46.0); IMMATURE GRANULOCYTE COUNT 0.1 K/uL; INSTRUMENT ABS NEUTROPHIL CT 9.4 K/uL; LYMPHOCYTE COUNT 0.4 K/uL (1.0-2.8); MCH 29.9 PG (29.0-34.0); MCHC 31.9 G/DL (30.0-36.0); MCV 93.7 FL (83-99); MEAN PLAT.VOLUME 10.9 uM^3 (9.5-12.4); MONOCYTE (%) 4.5 % (3-12); MONOCYTE COUNT 0.5 K/uL (0-0.8); NEUTROPHIL (%) 88.8 % (45-76); NEUTROPHIL COUNT 9.4 K/uL (1.8-6.4); PLATELET COUNT 204 K/uL (156-360); RBC DIS.WIDTH-CV 17.8 % (11.8-14.6); RBC DIS.WIDTH-SD 61.2 % (39-53); RED BLOOD COUNT 2.71 M/uL (3.80-5.20); WHITE BLOOD COUNT 10.6 K/uL (4.1-10.2)
[2016-11-18 07:31] LABS: ANION GAP 12 MEQ/L (2-14); CHLORIDE 102 MEQ/L (99-109); POTASSIUM 4.2 MEQ/L (3.7-5.4); SAMPLE HEMOLYSIS CHECK 0; SAMPLE ICTERIC CHECK 0; SAMPLE LIPEMIA CHECK 0; SODIUM 135 MEQ/L (136-147)
[2016-11-18 07:37] LABS: GFR ESTIMATE (CALCULATED) 28 mL/min/; UREA NITROGEN (BUN) 31 mg/dL (9-23)
[2016-11-18 07:38] LABS: GLUCOSE 85 mg/dL (70-99)
[2016-11-18 08:22] VITALS: BP 145/65
[2016-11-18 11:35] VITALS: BP 141/63
[2016-11-18 16:02] VITALS: BP 117/88
[2016-11-18 23:41] VITALS: BP 139/63
[2016-11-19 06:27] LABS: HEMATOCRIT 24.5 % (36.0-46.0); MCH 29.3 PG (29.0-34.0); MCHC 31.8 G/DL (30.0-36.0); MCV 92.1 FL (83-99); MEAN PLAT.VOLUME 10.8 uM^3 (9.5-12.4); PLATELET COUNT 227 K/uL (156-360); RBC DIS.WIDTH-CV 17.2 % (11.8-14.6); RBC DIS.WIDTH-SD 57.6 % (39-53); RED BLOOD COUNT 2.66 M/uL (3.80-5.20); WHITE BLOOD COUNT 9.2 K/uL (4.1-10.2)
[2016-11-19 06:47] LABS: ANION GAP 11 MEQ/L (2-14); CHLORIDE 100 MEQ/L (99-109); GFR ESTIMATE (CALCULATED) 25 mL/min/; GLUCOSE 90 mg/dL (70-99); POTASSIUM 3.6 MEQ/L (3.7-5.4); SAMPLE HEMOLYSIS CHECK 0; SAMPLE ICTERIC CHECK 0; SAMPLE LIPEMIA CHECK 0; SODIUM 134 MEQ/L (136-147); UREA NITROGEN (BUN) 33 mg/dL (9-23); VANCOMYCIN, TROUGH 17.4 MCG/ML (10-20)
[2016-11-19 07:49] VITALS: BP 135/90
[2016-11-19 15:55] VITALS: BP 145/65
[2016-11-19 23:45] VITALS: BP 127/65
[2016-11-20 07:08] LABS: HEMATOCRIT 23.5 % (36.0-46.0); MCH 30.7 PG (29.0-34.0); MCHC 33.2 G/DL (30.0-36.0); MCV 92.5 FL (83-99); MEAN PLAT.VOLUME 10.7 uM^3 (9.5-12.4); PLATELET COUNT 196 K/uL (156-360); RBC DIS.WIDTH-CV 16.5 % (11.8-14.6); RBC DIS.WIDTH-SD 56.1 % (39-53); RED BLOOD COUNT 2.54 M/uL (3.80-5.20); WHITE BLOOD COUNT 4.7 K/uL (4.1-10.2)
[2016-11-20 07:37] LABS: ANION GAP 11 MEQ/L (2-14); CHLORIDE 105 MEQ/L (99-109); GFR ESTIMATE (CALCULATED) 26 mL/min/; POTASSIUM 4.2 MEQ/L (3.7-5.4); SAMPLE HEMOLYSIS CHECK 0; SAMPLE ICTERIC CHECK 0; SAMPLE LIPEMIA CHECK 0; SODIUM 137 MEQ/L (136-147); UREA NITROGEN (BUN) 33 mg/dL (9-23)
[2016-11-20 07:42] LABS: GLUCOSE 119 mg/dL (70-99)
[2016-11-20 08:54] VITALS: BP 143/65
[2016-11-20 15:42] VITALS: BP 136/64
[2016-11-20 23:40] VITALS: BP 140/69
[2016-11-21 09:28] VITALS: BP 151/75
[2016-11-21 11:40] VITALS: BP 170/74
[2016-11-22 00:02] VITALS: BP 177/110
[2016-11-22 06:25] VITALS: BP 174/94
[2016-11-22 06:51] LABS: ANION GAP 11 MEQ/L (2-14); CHLORIDE 103 MEQ/L (99-109); GFR ESTIMATE (CALCULATED) 20 mL/min/; GLUCOSE 109 mg/dL (70-99); POTASSIUM 3.9 MEQ/L (3.7-5.4); SAMPLE HEMOLYSIS CHECK 0; SAMPLE ICTERIC CHECK 0; SAMPLE LIPEMIA CHECK 0; SODIUM 136 MEQ/L (136-147); UREA NITROGEN (BUN) 33 mg/dL (9-23)
[2016-11-22 07:51] VITALS: BP 153/71
[2016-11-22 11:11] LABS: HEMATOCRIT 24.8 % (36.0-46.0); MCH 30.7 PG (29.0-34.0); MCHC 32.7 G/DL (30.0-36.0); MCV 93.9 FL (83-99); MEAN PLAT.VOLUME 11.4 uM^3 (9.5-12.4); PLATELET COUNT 245 K/uL (156-360); RBC DIS.WIDTH-CV 16.5 % (11.8-14.6); RBC DIS.WIDTH-SD 56.5 % (39-53); RED BLOOD COUNT 2.64 M/uL (3.80-5.20); WHITE BLOOD COUNT 8.1 K/uL (4.1-10.2)
[2016-11-22 15:16] VITALS: BP 152/74
[2016-11-22 23:30] VITALS: BP 172/115
[2016-11-23 05:05] VITALS: BP 176/78
[2016-11-23 06:34] LABS: ANION GAP 9 MEQ/L (2-14); CHLORIDE 103 MEQ/L (99-109); GFR ESTIMATE (CALCULATED) 14 mL/min/; GLUCOSE 94 mg/dL (70-99); POTASSIUM 3.9 MEQ/L (3.7-5.4); SAMPLE HEMOLYSIS CHECK 0; SAMPLE ICTERIC CHECK 0; SAMPLE LIPEMIA CHECK 0; SODIUM 135 MEQ/L (136-147); UREA NITROGEN (BUN) 39 mg/dL (9-23)
[2016-11-23 07:56] VITALS: BP 177/75
[2016-11-23 08:50] LABS: EOSINOPHIL (%) 0.4 % (0-5); EOSINOPHIL COUNT 0.1 K/uL (0-0.3); HEMATOCRIT 25.1 % (36.0-46.0); IMMATURE GRANULOCYTE (%) 4.3 % (0.0-0.7); IMMATURE GRANULOCYTE COUNT 0.5 K/uL; INSTRUMENT ABS NEUTROPHIL CT 9.3 K/uL; LYMPHOCYTE COUNT 1.3 K/uL (1.0-2.8); MCH 30.9 PG (29.0-34.0); MCHC 33.1 G/DL (30.0-36.0); MCV 93.3 FL (83-99); MEAN PLAT.VOLUME 10.8 uM^3 (9.5-12.4); MONOCYTE (%) 8.8 % (3-12); MONOCYTE COUNT 1.1 K/uL (0-0.8); NEUTROPHIL (%) 76.1 % (45-76); NEUTROPHIL COUNT 9.3 K/uL (1.8-6.4); PLATELET COUNT 270 K/uL (156-360); RBC DIS.WIDTH-CV 16.3 % (11.8-14.6); RBC DIS.WIDTH-SD 55.1 % (39-53); RED BLOOD COUNT 2.69 M/uL (3.80-5.20); WHITE BLOOD COUNT 12.2 K/uL (4.1-10.2)
[2016-11-23 15:36] VITALS: BP 183/72
[2016-11-23 20:20] VITALS: BP 174/72
[2016-11-24] VITALS: BP 155/81
[2016-11-24 06:57] LABS: EOSINOPHIL (%) 2.4 % (0-5); EOSINOPHIL COUNT 0.4 K/uL (0-0.3); IMMATURE GRANULOCYTE (%) 4.3 % (0.0-0.7); IMMATURE GRANULOCYTE COUNT 0.6 K/uL; INSTRUMENT ABS NEUTROPHIL CT 11.4 K/uL; LYMPHOCYTE COUNT 1.4 K/uL (1.0-2.8); MCH 29.6 PG (29.0-34.0); MCHC 32.1 G/DL (30.0-36.0); MCV 92.4 FL (83-99); MONOCYTE (%) 7.3 % (3-12); MONOCYTE COUNT 1.1 K/uL (0-0.8); NEUTROPHIL (%) 76.3 % (45-76); NEUTROPHIL COUNT 11.4 K/uL (1.8-6.4); RBC DIS.WIDTH-CV 16.4 % (11.8-14.6); RBC DIS.WIDTH-SD 55.2 % (39-53); RED BLOOD COUNT 3.14 M/uL (3.80-5.20)
[2016-11-24 07:14] LABS: ANION GAP 13 MEQ/L (2-14); CHLORIDE 107 MEQ/L (99-109); GFR ESTIMATE (CALCULATED) 15 mL/min/; GLUCOSE 76 mg/dL (70-99); POTASSIUM 4.7 MEQ/L (3.7-5.4); SAMPLE HEMOLYSIS CHECK 1; SAMPLE ICTERIC CHECK 0; SAMPLE LIPEMIA CHECK 0; SODIUM 137 MEQ/L (136-147); UREA NITROGEN (BUN) 41 mg/dL (9-23)
[2016-11-24 07:49] LABS: PLAT.SUFFICIENCY ADEQUATE; PLATELET CLUMPS PRESENT - PLATELET COUNT APPEARS ADQ.; PLATELET COUNT UNABLE TO REPORT K/uL (156-360)
[2016-11-24 12:05] LABS: POINT-OF-CARE METER ID UU13113717
[2016-11-24 17:40] VITALS: BP 162/84
[2016-11-24 23:21] VITALS: BP 187/78
[2016-11-25 06:12] VITALS: BP 170/79
[2016-11-25 07:06] LABS: EOSINOPHIL (%) 0.7 % (0-5); EOSINOPHIL COUNT 0.1 K/uL (0-0.3); HEMATOCRIT 24.1 % (36.0-46.0); IMMATURE GRANULOCYTE (%) 4.1 % (0.0-0.7); IMMATURE GRANULOCYTE COUNT 0.6 K/uL; INSTRUMENT ABS NEUTROPHIL CT 12.4 K/uL; LYMPHOCYTE COUNT 1.2 K/uL (1.0-2.8); MCH 30.2 PG (29.0-34.0); MCHC 32.4 G/DL (30.0-36.0); MCV 93.4 FL (83-99); MEAN PLAT.VOLUME 10.8 uM^3 (9.5-12.4); MONOCYTE (%) 6.4 % (3-12); NEUTROPHIL COUNT 12.4 K/uL (1.8-6.4); PLATELET COUNT 275 K/uL (156-360); RBC DIS.WIDTH-CV 16.6 % (11.8-14.6); RBC DIS.WIDTH-SD 55.9 % (39-53); RED BLOOD COUNT 2.58 M/uL (3.80-5.20); WHITE BLOOD COUNT 15.3 K/uL (4.1-10.2)
[2016-11-25 07:32] LABS: ANION GAP 12 MEQ/L (2-14); CHLORIDE 107 MEQ/L (99-109); POTASSIUM 4.2 MEQ/L (3.7-5.4); SAMPLE HEMOLYSIS CHECK 0; SAMPLE ICTERIC CHECK 0; SAMPLE LIPEMIA CHECK 0; SODIUM 139 MEQ/L (136-147)
[2016-11-25 07:39] LABS: GFR ESTIMATE (CALCULATED) 12 mL/min/; GLUCOSE 76 mg/dL (70-99); UREA NITROGEN (BUN) 46 mg/dL (9-23)
[2016-11-26 00:29] VITALS: BP 143/73
[2016-11-26 07:35] VITALS: BP 163/70
[2016-11-26 07:49] VITALS: BP 157/91
[2016-11-26 09:16] LABS: HEMATOCRIT 25.3 % (36.0-46.0); MCH 29.9 PG (29.0-34.0); MCV 93.4 FL (83-99); MEAN PLAT.VOLUME 10.9 uM^3 (9.5-12.4); PLATELET COUNT 326 K/uL (156-360); RBC DIS.WIDTH-CV 16.8 % (11.8-14.6); RBC DIS.WIDTH-SD 56.6 % (39-53); RED BLOOD COUNT 2.71 M/uL (3.80-5.20); WHITE BLOOD COUNT 17.7 K/uL (4.1-10.2)
[2016-11-26 09:39] LABS: ANION GAP 15 MEQ/L (2-14); CHLORIDE 106 MEQ/L (99-109); GFR ESTIMATE (CALCULATED) 12 mL/min/; GLUCOSE 89 mg/dL (70-99); POTASSIUM 4.2 MEQ/L (3.7-5.4); SAMPLE HEMOLYSIS CHECK 0; SAMPLE ICTERIC CHECK 0; SAMPLE LIPEMIA CHECK 0; SODIUM 141 MEQ/L (136-147); UREA NITROGEN (BUN) 50 mg/dL (9-23)
[2016-11-26 17:19] VITALS: BP 150/91
[2016-11-26 23:45] VITALS: BP 174/69
[2016-11-27 05:51] LABS: EOSINOPHIL (%) 0.9 % (0-5); EOSINOPHIL COUNT 0.2 K/uL (0-0.3); HEMATOCRIT 23.9 % (36.0-46.0); IMMATURE GRANULOCYTE (%) 3.1 % (0.0-0.7); IMMATURE GRANULOCYTE COUNT 0.5 K/uL; INSTRUMENT ABS NEUTROPHIL CT 13.4 K/uL; LYMPHOCYTE COUNT 1.3 K/uL (1.0-2.8); MCH 29.6 PG (29.0-34.0); MCHC 31.8 G/DL (30.0-36.0); MEAN PLAT.VOLUME 10.9 uM^3 (9.5-12.4); MONOCYTE (%) 7.5 % (3-12); MONOCYTE COUNT 1.2 K/uL (0-0.8); NEUTROPHIL (%) 80.7 % (45-76); NEUTROPHIL COUNT 13.4 K/uL (1.8-6.4); PLATELET COUNT 351 K/uL (156-360); RBC DIS.WIDTH-CV 17.1 % (11.8-14.6); RED BLOOD COUNT 2.57 M/uL (3.80-5.20); WHITE BLOOD COUNT 16.6 K/uL (4.1-10.2)
[2016-11-27 07:56] VITALS: BP 160/70
[2016-11-28 12:05] VITALS: BP 160/70
== END 2016-11-28 15:36 | disposition hospice, home (50) | DRG 871 ==
LOC: EME 18:39 → ENRESERV 21:26 → 5SOUTH 21:26 → EDOF 21:26 → ENRESERV 22:41 → 5SOUTH 11-17 03:03
PROVIDERS: Emergency Medicine; Hospitalist; Internal Medicine; Internal Medicine Nephrology; Nurse Practitioner Adult Health; Physician Assistant Medical
PROC: 30233N1 Transfusion of Nonautologous Red Blood Cells into Peripheral Vein, Percutaneous Approach (ICD-10-PCS; principal; 2016-11-17)
DX: A41.9 Sepsis, unspecified organism (principal); J96.21 Acute and chronic respiratory failure with hypoxia; J15.9 Unspecified bacterial pneumonia; J44.0 Chronic obstructive pulmonary disease with (acute) lower respiratory infection; E87.2 Acidosis; I13.0 Hypertensive heart and chronic kidney disease with heart failure and stage 1 through stage 4 chronic kidney disease, or unspecified chronic kidney disease; I50.32 Chronic diastolic (congestive) heart failure; N18.4 Chronic kidney disease, stage 4 (severe); N17.0 Acute kidney failure with tubular necrosis; T36.8X5A Adverse effect of other systemic antibiotics, initial encounter; T37.95XA Adverse effect of unspecified systemic anti-infective and antiparasitic, initial encounter; I27.20 Pulmonary hypertension, unspecified; Z96.641 Presence of right artificial hip joint; D63.1 Anemia in chronic kidney disease; E11.22 Type 2 diabetes mellitus with diabetic chronic kidney disease; E11.40 Type 2 diabetes mellitus with diabetic neuropathy, unspecified; Z99.81 Dependence on supplemental oxygen; I48.0 Paroxysmal atrial fibrillation; M10.371 Gout due to renal impairment, right ankle and foot; E78.5 Hyperlipidemia, unspecified; I25.10 Atherosclerotic heart disease of native coronary artery without angina pectoris; K21.9 Gastro-esophageal reflux disease without esophagitis; K59.00 Constipation, unspecified; I08.0 Rheumatic disorders of both mitral and aortic valves; E03.9 Hypothyroidism, unspecified; M19.90 Unspecified osteoarthritis, unspecified site; Y95 Nosocomial condition; Z51.5 Encounter for palliative care; Z66 Do not resuscitate; S72.001K Fracture of unspecified part of neck of right femur, subsequent encounter for closed fracture with nonunion; Z86.718 Personal history of other venous thrombosis and embolism; Z90.710 Acquired absence of both cervix and uterus; Z82.49 Family history of ischemic heart disease and other diseases of the circulatory system
CPT/HCPCS: 36600; 71010; 71020; 72170; 74000; 80048; 80202; 81003; 82272; 82803; 82948; 83605; 83880; 84484; 85025; 85025 91; 85027; 86850; 86900; 86901; 86920; 87040; 87070; 87086; 87205; 87449; 87502; 87641; 93005; 93306; 93970; 94640 76; 94667; 94760; 94799; 97530 GO; 99202; 99281; 99285; J0456; J0692; J0696; J1644; J1940; J1956; J2060; J2270; J2930; J3370; J7030; J7050; J7120; J7512; P9016

== ENCOUNTER 2016-11-28 11:08 | Inpatient (IN) | payer OTHER ==
[~2016-11-28 11:08] MED LIST changes: +ASPIR-LOW81 MG PO; +DULCOLAX10 MG PR; +FERROUS SULFAT325 MG PO; +METOPROLOL SUCC25 MG PO; +MILK OF MAGN PO; +MIRALAX17 GM PO; +NITROFURANTOIN50 MG PO; +ROXICODONE5 MG PO; +VITRON-C TABLE1 EACH PO
[2016-11-28 17:27] VITALS: BP 000/00
== END 2016-11-29 01:08 | DRG 189 ==
LOC: 5EAST 11:08 → ENRESERV 11:09 → 5EAST 15:49
DX: J96.91 Respiratory failure, unspecified with hypoxia (principal); Z51.5 Encounter for palliative care; Z66 Do not resuscitate; N17.9 Acute kidney failure, unspecified; J18.9 Pneumonia, unspecified organism; Y95 Nosocomial condition; J81.1 Chronic pulmonary edema; I12.9 Hypertensive chronic kidney disease with stage 1 through stage 4 chronic kidney disease, or unspecified chronic kidney disease; E11.22 Type 2 diabetes mellitus with diabetic chronic kidney disease; N18.9 Chronic kidney disease, unspecified; I25.10 Atherosclerotic heart disease of native coronary artery without angina pectoris; I48.0 Paroxysmal atrial fibrillation; Z88.1 Allergy status to other antibiotic agents; Z91.041 Radiographic dye allergy status
CPT/HCPCS: J2060; J2270